=== PATIENT | male | born 1990 | race African-American/Black ===

== ENCOUNTER → 2023-10-28 | Emergency (ER) | payer MEDICAID ==
[~2023-10-28] VITALS: Ht 185.4 cm; Wt 93.9 kg
[~2023-10-28] MED LIST: CEFD300C3 PO; CEFTRIAXONE 1GM BAG (ER ONLY) 50 ML IV ONE; ONDA4TAB5 PO; ONDANSETRON HCL/PF 4 MG/2 ML VIAL ONE
[2023-10-28] MEDS: IV NS 0.9% 1,000 ML BAG IV ONE (11:03)
[2023-10-28] MEDS: ONDANSETRON HCL/PF 4 MG/2 ML VIAL IVP ONE (11:04)
[2023-10-28 11:37] LABS: BASOPHILS # (AUTO) 0.1 K/uL (0.0-0.2); BASOPHILS % (AUTO) 0.4 % (0.0-2.0); EOSINOPHILS % (AUTO) 0.2 % (0.0-6.0); HEMATOCRIT 46 % (39-51); HEMOGLOBIN 15.8 g/dL (13.5-17.5); LYMPHOCYTES # (AUTO) 1.4 K/uL (0.8-4.8); MEAN CORPUSCULAR HEMOGLOBIN 30 PG (26.0-33.0); MEAN CORPUSCULAR HGB CONC 34 g/dl (31.0-36.0); MEAN CORPUSCULAR VOLUME 86 fL (80-96); MONOCYTES % (AUTO) 8.6 % (2.0-12.0); NEUTROPHILS # (AUTO) 9.4 K/uL (1.8-8.9); NEUTROPHILS % (AUTO) 78.8 % (43.0-81.0); PLATELET COUNT (AUTO) 335 K/uL (150-450); RED BLOOD CELL COUNT(AUTO) 5.34 MIL/uL (4.5-6.0)
[2023-10-28 11:38] LABS: APPEARANCE,URINE SLIGHTLY CLOUDY (CLEAR); BILIRUBIN,URINE 1+ (NEGATIVE); BLOOD, URINE 3+ Ery/uL (NEGATIVE); COLOR,URINE DARK YELLOW (YELLOW); KETONES,URINE NEGATIVE (NEGATIVE); LEUKOCYTE ESTERASE ,URINE NEGATIVE (NEGATIVE); NITRITE, URINE NEGATIVE (NEGATIVE); PROTEIN,URINE 3+ mg/dl (NEGATIVE); UGLUCOSE NEGATIVE (NEGATIVE)
[2023-10-28 11:49] LABS: ADD URINE CULTURE NO; BACTERIA,URINE None seen /HPF (None Seen); SQUAMOUS EPITHELIAL CELL,UR 0-2 /HPF (None Seen); TRICHOMONAS,URINE None Seen /HPF (None Seen); YEAST,URINE None Seen /HPF (None Seen)
[2023-10-28 11:50] LABS: URINE AMORPHOUS URATE Few /HPF (None Seen)
[2023-10-28 11:51] LABS: FINE GRANULAR CASTS,URINE Moderate /LPF (None Seen); MUCUS,URINE Few /LPF (None Seen)
[2023-10-28 12:22] LABS: CALCIUM, SERUM 9.4 mg/dL (8.5-10.1); CREATININE 2.1 mg/dL (0.6-1.3); POTASSIUM 3.2 mmol/L (3.5-5.1)
[2023-10-28 12:27] LABS: ALBUMIN 4.3 g/dL (3.4-5.0); BILIRUBIN,DIRECT 0.3 mg/dL (0.0-0.2); BILIRUBIN,TOTAL 1.2 mg/dL (0.2-1.0)
[2023-10-28] MEDS: CEFTRIAXONE 1 G in IV D5W 50 ML IV ONE (12:37)
[2023-10-28 15:33] VITALS: BP 124/70; TEMP 98.2; O2SAT 99
== END | disposition home or self-care (01) ==
LOC: ER 10:26
DX: N39.0 Urinary tract infection, site not specified (principal); N17.9 Acute kidney failure, unspecified; R10.33 Periumbilical pain; R11.2 Nausea with vomiting, unspecified; I10 Essential (primary) hypertension; E11.9 Type 2 diabetes mellitus without complications
CPT/HCPCS: 99284; 74176; 96365; 96361; 96375; 85025; 80048; 83690; 80076; 81001; 36415; J0696 ×2; J2405; J7060; J7030 ×2; A4223

== ENCOUNTER 2023-11-04 11:09 | Inpatient (IN) | payer MEDICAID ==
[~2023-11-04] VITALS: Ht 185.4 cm; Wt 122.5 kg
[~2023-11-04 11:09] MED LIST changes: -CEFTRIAXONE 1GM BAG (ER ONLY) 50 ML IV ONE; -ONDANSETRON HCL/PF 4 MG/2 ML VIAL ONE
[2023-11-04] MEDS ORDERED: METOCLOPRAMIDE HCL 10 MG/2 ML VIAL ONE (11:27)
[2023-11-04] MEDS: METOCLOPRAMIDE HCL 10 MG/2 ML VIAL IV ONE (11:30)
[2023-11-04] MEDS: IV NS 0.9% 1,000 ML BAG IV ONE (11:34)
[2023-11-04 12:22] LABS: BASOPHILS # (AUTO) 0.3 K/uL (0.0-0.2); BASOPHILS % (AUTO) 3.5 % (0.0-2.0); EOSINOPHILS # (AUTO) 0.1 K/uL (0.0-0.7); EOSINOPHILS % (AUTO) 0.9 % (0.0-6.0); HEMATOCRIT 45 % (39-51); HEMOGLOBIN 15.7 g/dL (13.5-17.5); LYMPHOCYTES # (AUTO) 1.2 K/uL (0.8-4.8); LYMPHOCYTES % (AUTO) 13.3 % (20.0-44.0); MEAN CORPUSCULAR HEMOGLOBIN 30 PG (26.0-33.0); MEAN CORPUSCULAR HGB CONC 35 g/dl (31.0-36.0); MEAN CORPUSCULAR VOLUME 85 fL (80-96); MONOCYTES # (AUTO) 0.7 K/uL (0.1-1.30); MONOCYTES % (AUTO) 7.7 % (2.0-12.0); NEUTROPHILS # (AUTO) 6.5 K/uL (1.8-8.9); NEUTROPHILS % (AUTO) 74.6 % (43.0-81.0); PLATELET COUNT (AUTO) 311 K/uL (150-450); RED BLOOD CELL COUNT(AUTO) 5.32 MIL/uL (4.5-6.0); RED CELL DISTRIBUTION WIDTH 13.7 % (11.5-15.0); WHITE BLOOD COUNT (AUTO) 8.7 K/uL (4.3-11.0)
[2023-11-04 13:01] LABS: ALBUMIN 4.2 g/dL (3.4-5.0); BILIRUBIN,DIRECT 0.5 mg/dL (0.0-0.2); BILIRUBIN,TOTAL 2.2 mg/dL (0.2-1.0); CALCIUM, SERUM 9.5 mg/dL (8.5-10.1); CREATININE 1.8 mg/dL (0.6-1.3); POTASSIUM 3.1 mmol/L (3.5-5.1); TOTAL PROTEIN, SERUM 8.4 g/dL (6.4-8.2)
[2023-11-04] MEDS ORDERED: METF-440 PO (13:53)
[2023-11-04] MEDS ORDERED: ROSU20TA2 PO (13:53)
[2023-11-04] MEDS ORDERED: SEMA0.25 SQ (13:53)
[2023-11-04] MEDS ORDERED: ONDA-97 PO (13:53)
[2023-11-04] MEDS ORDERED: GLIM1TAB18 PO (13:53)
[2023-11-04] MEDS ORDERED: SPIR1TAB4 PO (13:53)
[2023-11-04] MEDS ORDERED: LISI-768 PO (13:53)
[2023-11-04] MEDS ORDERED: CEFD300C3 PO (13:53)
[2023-11-04] MEDS ORDERED: CHOL500052 PO (13:53)
[2023-11-04 16:00] VITALS: BP 134/79; TEMP 98.4; O2SAT 100
[2023-11-04] MEDS ORDERED: Z GUARD REMEDY 4 OZ OINT TP PRN (17:30)
[2023-11-04] MEDS ORDERED: ONDANSETRON HCL/PF 4 MG/2 ML VIAL IVP PRN (17:30)
[2023-11-04] MEDS ORDERED: ACETAMINOPHEN 325 MG TABLET PO PRN (17:30)
[2023-11-04] MEDS ORDERED: MAGNESIUM HYDROXIDE 30 ML UDC PO PRN (17:30)
[2023-11-04] MEDS ORDERED: METOCLOPRAMIDE HCL 10 MG/2 ML VIAL IV SCH (17:30)
[2023-11-04] MEDS ORDERED: DEXTROSE 50%-WATER 50 ML DISP.SYRIN IV PRN (17:30)
[2023-11-04] MEDS: DICYCLOMINE HCL 10 MG CAPSULE PO SCH (17:44)
[2023-11-04] MEDS: METOCLOPRAMIDE HCL 10 MG/2 ML VIAL IV SCH (17:44)
[2023-11-04] MEDS: POTASSIUM CHLORIDE 20 MEQ TAB.PRT.SR PO ONE (17:44)
[2023-11-04] MEDS: BLOOD SUGAR DIAGNOSTIC 1 EACH STRIP IN SCH (17:45)
[2023-11-04] MEDS: INSULIN REGULAR, HUMAN 100 UNIT/ML 3 ML VIAL SQ PRN (18:46)
[2023-11-04 20:00] VITALS: BP 138/91; TEMP 98.4; O2SAT 97
[2023-11-04] MEDS: IV NS 0.9% 1,000 ML IV PRN (20:27)
[2023-11-04 21:09] VITALS: BP 138/91; TEMP 98.4; O2SAT 97
[2023-11-05 01:42] LABS: APPEARANCE,URINE CLEAR (CLEAR); BILIRUBIN,URINE NEGATIVE (NEGATIVE); BLOOD, URINE NEGATIVE Ery/uL (NEGATIVE); COLOR,URINE YELLOW (YELLOW); KETONES,URINE NEGATIVE (NEGATIVE); LEUKOCYTE ESTERASE ,URINE NEGATIVE (NEGATIVE); NITRITE, URINE NEGATIVE (NEGATIVE); PROTEIN,URINE NEGATIVE (NEGATIVE); UGLUCOSE NEGATIVE (NEGATIVE)
[2023-11-05 07:30] VITALS: BP 130/81; TEMP 98.6; O2SAT 100
[2023-11-05 07:48] LABS: BASOPHILS # (AUTO) 0.1 K/uL (0.0-0.2); BASOPHILS % (AUTO) 0.9 % (0.0-2.0); EOSINOPHILS # (AUTO) 0.1 K/uL (0.0-0.7); EOSINOPHILS % (AUTO) 1.3 % (0.0-6.0); HEMATOCRIT 40 % (39-51); LYMPHOCYTES # (AUTO) 1.8 K/uL (0.8-4.8); LYMPHOCYTES % (AUTO) 22.9 % (20.0-44.0); MEAN CORPUSCULAR HEMOGLOBIN 30 PG (26.0-33.0); MEAN CORPUSCULAR HGB CONC 35 g/dl (31.0-36.0); MEAN CORPUSCULAR VOLUME 86 fL (80-96); MONOCYTES # (AUTO) 0.7 K/uL (0.1-1.30); MONOCYTES % (AUTO) 9.3 % (2.0-12.0); NEUTROPHILS # (AUTO) 5.2 K/uL (1.8-8.9); NEUTROPHILS % (AUTO) 65.6 % (43.0-81.0); PLATELET COUNT (AUTO) 268 K/uL (150-450); RED CELL DISTRIBUTION WIDTH 13.5 % (11.5-15.0)
[2023-11-05 08:31] VITALS: BP 130/81
[2023-11-05] MEDS: ATORVASTATIN 40 MG TABLET PO SCH (08:31)
[2023-11-05] MEDS: POLYETHYLENE GLYCOL 3350 17 GM POWD.PACK PO SCH (08:31)
[2023-11-05] MEDS: PANTOPRAZOLE 40 MG TABLET.DR PO SCH (08:31)
[2023-11-05] MEDS: LISINOPRIL (5MG) 5 MG TABLET PO SCH (08:31)
[2023-11-05 09:30] LABS: CALCIUM, SERUM 8.8 mg/dL (8.5-10.1); CREATININE 1.4 mg/dL (0.6-1.3); MAGNESIUM 2.2 mg/dL (1.8-2.4); PHOSPHORUS 3.1 mg/dL (2.5-4.9); POTASSIUM 3.1 mmol/L (3.5-5.1)
[2023-11-05] MEDS: POTASSIUM CHLORIDE 20 MEQ TAB.PRT.SR PO ONE (11:56)
[2023-11-06] MEDS ORDERED: METO-295 PO (15:34)
== END 2023-11-05 15:30 | disposition home or self-care (01) | DRG 48 ==
LOC: ER 11:11 → MED 15:53
PROVIDERS: ADMIT Nurse Practitioner Family; ATTEND Nurse Practitioner Family
DX: E11.43 Type 2 diabetes mellitus with diabetic autonomic (poly)neuropathy (principal); N17.9 Acute kidney failure, unspecified; E87.1 Hypo-osmolality and hyponatremia; K31.84 Gastroparesis; E86.0 Dehydration; E87.6 Hypokalemia; I10 Essential (primary) hypertension; E80.6 Other disorders of bilirubin metabolism; T38.3X5A Adverse effect of insulin and oral hypoglycemic [antidiabetic] drugs, initial encounter; Y92.009 Unspecified place in unspecified non-institutional (private) residence as the place of occurrence of the external cause; Z79.84 Long term (current) use of oral hypoglycemic drugs; R10.9 Unspecified abdominal pain; R11.2 Nausea with vomiting, unspecified; R53.1 Weakness
CPT/HCPCS: 36415; 76700-TC; 80048-TC; 80076-TC; 82962-TC; 83690-TC; 83735-TC; 84100-TC; 85025-TC; A4223; G0378; J1815; J2765; J7030